=== PATIENT | male | born 1980 | race Hispanic/Latino ===

== ENCOUNTER 2020-12-24 03:45 | Emergency (ER) | payer OTHER ==
[~2020-12-24] VITALS: Ht 190.5 cm; Wt 124.7 kg
[~2020-12-24 03:45] MED LIST: ANDROGEL1.621 TD
[2020-12-24 05:25] VITALS: BP 131/83; TEMP 98.7
== END 2020-12-24 05:25 | disposition home or self-care (01) ==
LOC: ED 03:45
PROC: 2W23X4Z Dressing of Abdominal Wall using Bandage (ICD-10-PCS; principal; 2020-12-24)
PROC: 2W2CX4Z Dressing of Right Lower Arm using Bandage (ICD-10-PCS; 2020-12-24)
PROC: 2W24X4Z Dressing of Chest Wall using Bandage (ICD-10-PCS; 2020-12-24)
DX: T21.22XA Burn of second degree of abdominal wall, initial encounter (principal); T23.271A Burn of second degree of right wrist, initial encounter; T21.21XA Burn of second degree of chest wall, initial encounter; T31.0 Burns involving less than 10% of body surface; X12.XXXA Contact with other hot fluids, initial encounter; Y92.89 Other specified places as the place of occurrence of the external cause
CPT/HCPCS: 96372; 99283; J1885